=== PATIENT | male | born 1985 | race Hispanic/Latino ===

== ENCOUNTER 2021-05-21 07:50 | Emergency (ER) | payer OTHER, SELFPAY ==
[~2021-05-21] VITALS: Ht 172.7 cm; Wt 117.9 kg
[2021-05-21 09:09] VITALS: BP 128/85
[2021-05-21] MEDS: ACETAMINOPHEN 500 MG TABLET ONE ×2 (09:45→09:54)
[2021-05-21] MEDS ORDERED: AZITHROMYCIN 250 MG TABLET PO SCH (10:00)
[2021-05-21] MEDS ORDERED: ACETAMINOPHEN 500 MG TABLET PO SCH (10:00)
[2021-05-21] MEDS ORDERED: SOLU-MEDROL 125MG VIAL IM SCH (10:00)
[2021-05-21] MEDS ORDERED: AZIT500T PO ×2 (10:26→10:59)
[2021-05-21] MEDS ORDERED: METH4TAB3 PO (10:59)
== END 2021-05-21 11:38 | disposition home or self-care (01) ==
LOC: EDH 07:50
DX: U07.1 COVID-19 (principal); J12.82 Pneumonia due to coronavirus disease 2019
CPT/HCPCS: 71045; 87635; 87804 ×2; 87880; 96372; 99284; C9803; J2930